=== PATIENT | female | born 1960 | race Caucasian/White ===

== ENCOUNTER 2020-05-09 16:37 | Emergency (ER) | payer OTHER ==
[2020-05-09] MEDS ORDERED: LIDOCAINE 2% MPF 5 ML VIAL ONE (17:43)
[2020-05-09] MEDS ORDERED: BUPIVACAINE 0.5% PF 10 ML VIAL ONE (17:43)
[2020-05-09] MEDS ORDERED: TETANUS & DIPHTHERIA TOX,ADULT 0.5 ML VIAL ONE (17:44)
--- NOTE | 2020-05-09 18:40 | RAD REPORT ---
EXAM DESCRIPTION: RAD - Hand Right 3 View - 05/09/2020 6:07 pm CLINICAL HISTORY: PAIN Fall, trauma, pain COMPARISON: No comparisons FINDINGS: Moderately displaced transverse fracture is seen along the base of the proximal phalanx of the fourth finger.
--- NOTE | 2020-05-09 18:45 | EDPHYS ---
Physician Documentation [facility] Name: Chelsey Brooks Age: 60 yrs Sex: Female : 1960 Arrival Date: 05/09/2020 Time: 16:43 Bed 8 Private MD: ED Physician Sabrina Rosado HPI: 05/09 17:15 This 60 yrs old Female presents to ER via Ambulatory with complaints of kb Finger Injury, Fall Injury. 17:17 The patient or guardian reports decreased range of motion, deformity, injury, pain, kb swelling, tenderness. The complaints affect the right ring finger. Context: The problem was sustained at home, resulted from a fall, while walking. Onset: The symptoms/episode began/occurred just prior to arrival. Modifying factors: The symptoms are alleviated by nothing, the symptoms are aggravated by nothing. Associated signs and symptoms: The patient has no apparent associated signs or symptoms. Severity of symptoms: At their worst the symptoms were moderate, in the emergency department the symptoms are unchanged. The patient has not experienced similar symptoms in the past. The patient has not recently seen a physician. Pt reports she tripped over a nail in the deck and fell causing abrasions to right middle and ring fingers and deformity to right ring finger. Historical: - Allergies: 16:52 No Known Allergies; ph - Home Meds: 16:52 Multi Vitamin oral oral [Active]; ph - PMHx: 16:52 None; ph - PSHx: 16:52 None; ph - Immunization history:: Adult Immunizations unknown. - Social history:: Smoking status: Patient denies any tobacco usage or history of. ROS: 17:19 Constitutional: Negative for fever, chills, and weight loss, Cardiovascular: Negative kb for chest pain, palpitations, and edema, Respiratory: Negative for shortness of breath, cough, wheezing, and pleuritic chest pain, Abdomen/GI: Negative for abdominal pain, nausea, vomiting, diarrhea, and constipation, Neuro: Negative for headache, weakness, numbness, tingling, and seizure. 17:19 MS/extremity: Positive for injury or acute deformity, abrasion, decreased range of motion, deformity, pain, swelling, tenderness, of the right ring finger. Exam: 17:21 Constitutional: This is a well developed, well nourished patient who is awake, alert, kb and in no acute distress. Head/Face: Normocephalic, atraumatic. Chest/axilla: Normal chest wall appearance and motion. Nontender with no deformity. No lesions are appreciated. Cardiovascular: Regular rate and rhythm with a normal S1 and S2. No gallops, murmurs, or rubs. Normal PMI, no JVD. No pulse deficits. Respiratory: Lungs have equal breath sounds bilaterally, clear to auscultation and percussion. No rales, rhonchi or wheezes noted. No increased work of breathing, no retractions or nasal flaring. Abdomen/GI: Soft, non-tender, with normal bowel sounds. No distension or tympany. No guarding or rebound. No evidence of tenderness throughout. Neuro: Awake and alert, GCS 15, oriented to person, place, time, and situation. Cranial nerves II-XII grossly intact. Motor strength 5/5 in all extremities. Sensory grossly intact. Cerebellar exam normal. Normal gait. 17:21 Musculoskeletal/extremity: Extremities: grossly normal except: noted in the right ring finger: abrasion, decreased ROM, deformity, pain, swelling, tenderness, noted in the right middle finger: abrasion, ROM: limited active range of motion, in the right ring finger, Circulation is intact in all extremities. Sensation intact. Vital Signs: 16:50 BP 121 / 55; Pulse 83; Resp 18; Temp 97.8; Pulse Ox 98% on R/A; Weight 80.74 kg; Height ph 5 ft. 7 in. (170.18 cm); Pain 1/10; 17:30 BP 134 / 67; Pulse 81; Resp 16; Pulse Ox 98% ; sv 16:50 Body Mass Index 27.88 (80.74 kg, 170.18 cm) ph Procedures: 17:49 Nerve block: (digital) of right ring finger Medication: Lidocaine 1% without kb epinephrine Marcaine 0.5%, Amount: 6 mls were injected, Effect: the patient has resolution of the pain, Set up for procedure. Performed by Priya MARES Patient tolerated well. 18:38 Reduction: of the right ring finger, using traction, Immobilized with finger splint, yamila Patient tolerated well. 18:44 Reduction: Post reduction film - reveals improved alignment. yamila MDM: 16:45 Patient medically screened. yamila 17:07 Data reviewed: vital signs, nurses notes. Data interpreted: Pulse oximetry: on room air kb is 98 %. Interpretation: normal. 18:38 Counseling: I had a detailed discussion with the patient and/or guardian regarding: the kb historical points, exam findings, and any diagnostic results supporting the discharge/admit diagnosis, radiology results, the need for outpatient follow up, a orthopedic surgeon, to return to the emergency department if symptoms worsen or persist or if there are any questions or concerns that arise at home. 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 Exp: ph 12/20/2021. Lot #: [id number]. } Route: IM; Site: right deltoid; 19:03 Follow up: Response: No adverse reaction ph 17:52 Drug: Lidocaine (1 %) 1 vials Volume: 5 ml; Route: Infiltration; ph 19:03 Follow up: Response: No adverse reaction ph 17:52 Drug: Marcaine (0.5 %) 1 vials Volume: 10 ml; Route: Infiltration; ph 19:02 Follow up: Response: No adverse reaction; Pain is decreased ph Disposition: 05/09/20 18:45 Discharged to Home. Impression: Displaced fracture of proximal phalanx of right ring finger. - Condition is Stable. - Discharge Instructions: Finger Fracture, [id number]. - Prescriptions for Diclofenac Sodium 75 mg Oral Tablet, Delayed Release (E.C.) - take 1 tablet by ORAL route 2 times per day As needed; 30 tablet. - Medication Reconciliation Form, Thank You Letter, Antibiotic Education, Prescription Opioid Use form. - Follow up: Private Physician; When: 2 - 3 days; Reason: Recheck today's complaints, Continuance of care, Re-evaluation by your physician. Follow up: Emergency Department; When: As needed; Reason: Worsening of condition. Signatures: Dispatcher [employer] EDPriya Rosario, Alia Webster RN RN ph Corrections: (The following items were deleted from the chart) 19:03 18:45 05/09/2020 18:45 Discharged to Home. Impression: Displaced fracture of proximal ph phalanx of right ring finger. Condition is Stable. Forms are Medication Reconciliation Form, Thank You Letter, Antibiotic Education, Prescription Opioid Use. Follow up: Private Physician; When: 2 - 3 days; Reason: Recheck today's complaints, Continuance of care, Re-evaluation by your physician. Follow up: Emergency Department; When: As needed; Reason: Worsening of condition. kb
--- NOTE | 2020-05-09 18:45 | ER ---
Nurse's Notes [facility] Name: Chelsey Brooks Age: 60 yrs Sex: Female : 1960 Arrival Date: 05/09/2020 Time: 16:43 Bed 8 Private MD: Diagnosis: Displaced fracture of proximal phalanx of right ring finger Presentation: 05/09 16:50 Chief complaint: Patient states: " I had my hands full of stuff and was walking across ph my deck and fell, I think I tripped over a nail that was sticking out." Deformity noted to R ring finger, abrasion also noted to finger, pt denies other injury. Coronavirus screen: Patient denies a cough. Patient denies shortness of breath or difficulty breathing. Patient denies measured and/or subjective temperature greater than 100.4F prior to today's visit. Patient denies travel on a cruise ship or to a country the [facility] currently lists as an affected area. Patient denies contact with known and/or suspected case of COVID-19. Ebola Screen: No symptoms or risks identified at this time. Initial Sepsis Screen: Does the patient meet any 2 criteria? No. Patient's initial sepsis screen is negative. Does the patient have a suspected source of infection? No. Patient's initial sepsis screen is negative. Risk Assessment: Do you want to hurt yourself or someone else? Patient reports no desire to harm self or others. Onset of symptoms was May 09, 2020. 16:50 Method Of Arrival: Ambulatory ph 16:50 Acuity: CAMPOS 4 ph Historical: - Allergies: 16:52 No Known Allergies; ph - Home Meds: 16:52 Multi Vitamin oral oral [Active]; ph - PMHx: 16:52 None; ph - PSHx: 16:52 None; ph - Immunization history:: Adult Immunizations unknown. - Social history:: Smoking status: Patient denies any tobacco usage or history of. Screenin:54 Abuse screen: Denies threats or abuse. Denies injuries from another. Nutritional ph screening: No deficits noted. Tuberculosis screening: No symptoms or risk factors identified. Fall Risk None identified. Assessment: 16:53 General: Appears in no apparent distress. comfortable, well groomed, Behavior is calm, ph cooperative, appropriate for age. Pain: Complains of pain in dorsal aspect of middle phalanx of right ring finger and dorsal aspect of proximal phalanx of right ring finger. Neuro: Level of Consciousness is awake, alert, obeys commands, Oriented to person, place, time, situation. Cardiovascular: Capillary refill < 3 seconds Patient's skin is warm and dry. Respiratory: Airway is patent Respiratory effort is even, unlabored. Musculoskeletal: Circulation, motion, and sensation intact. Range of motion: limited in PIP of right ring finger Bony deformity noted of dorsal aspect of middle phalanx of right ring finger and dorsal aspect of proximal phalanx of right ring finger. 19:01 Reassessment: Patient appears in no apparent distress at this time. Patient and/or ph family updated on plan of care and expected duration. Pain level reassessed. Patient is alert, oriented x 3, equal unlabored respirations, skin warm/dry/pink. Pt d/c home. Vital Signs: 16:50 BP 121 / 55; Pulse 83; Resp 18; Temp 97.8; Pulse Ox 98% on R/A; Weight 80.74 kg; Height ph 5 ft. 7 in. (170.18 cm); Pain 1/10; 17:30 BP 134 / 67; Pulse 81; Resp 16; Pulse Ox 98% ; sv 16:50 Body Mass Index 27.88 (80.74 kg, 170.18 cm) ph ED Course: 16:43 Patient arrived in ED. mr 16:45 Nilay Adhikariistin, [facility] kb 16:45 Sabrina Rosado MD is Attending Physician. kb 16:49 Alia Mondragon, IZZY is Primary Nurse. ph 16:52 Triage completed. ph 16:53 Arm band placed on Patient placed in an exam room, on a stretcher. ph 16:54 Patient has correct armband on for positive identification. Bed in low position. Call ph light in reach. Side rails up X 1. Pulse ox on. NIBP on. Door closed. Noise minimized. 18:08 Hand Right 3 View XRAY In Process Unspecified. EDMS 18:53 Hand Right 2 View XRAY In Process Unspecified. EDMS 19:02 No provider procedures requiring assistance completed. Patient did not have IV access ph during this emergency room visit. 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 Exp: ph 12/20/2021. Lot #: [id number]. } Route: IM; Site: right deltoid; 19:03 Follow up: Response: No adverse reaction ph 17:52 Drug: Lidocaine (1 %) 1 vials Volume: 5 ml; Route: Infiltration; ph 19:03 Follow up: Response: No adverse reaction ph 17:52 Drug: Marcaine (0.5 %) 1 vials Volume: 10 ml; Route: Infiltration; ph 19:02 Follow up: Response: No adverse reaction; Pain is decreased ph Outcome: 18:45 Discharge ordered by . yamila 19:02 Discharged to home ambulatory. ph 19:02 Condition: good 19:02 Discharge instructions given to patient, Instructed on discharge instructions, follow up and referral plans. Demonstrated understanding of instructions, follow-up care, medications, splint care, Prescriptions given X 1. 19:03 Patient left the ED. ph Signatures: Dispatcher [employer] EDPriya Rosario, Jemma Valencia RN RN Gina Vora Patricia, RN RN
--- NOTE | 2020-05-09 18:54 | RAD REPORT ---
EXAM DESCRIPTION: RAD - Hand Right 2 View - 05/09/2020 6:47 pm CLINICAL HISTORY: postreduction Fracture COMPARISON: Hand Right 3 View dated 05/09/2020 FINDINGS: Previously noted fracture involving the base of the proximal phalanx of the fourth finger has been the mildly reduced and placed within a splint. Bone detail is obscured.
[2020-05-09 19:28] VITALS: TEMP 97.8; O2SAT 98
[2020-05-09 19:29] VITALS: BP 134/67
== END 2020-05-09 19:03 | disposition home or self-care (01) ==
LOC: ER 16:37
PROC: 0PSTXZZ Reposition Right Finger Phalanx, External Approach (ICD-10-PCS; principal; 2020-05-09)
DX: S62.614A Displaced fracture of proximal phalanx of right ring finger, initial encounter for closed fracture (principal); W01.198A Fall on same level from slipping, tripping and stumbling with subsequent striking against other object, initial encounter; Y93.01 Activity, walking, marching and hiking; Y92.009 Unspecified place in unspecified non-institutional (private) residence as the place of occurrence of the external cause; Z23 Encounter for immunization
CPT/HCPCS: 64450; 90471; 90714; 99284